=== PATIENT | female | born 1985 | race Caucasian/White ===

== ENCOUNTER → 2021-08-05 | Outpatient (CLI) | payer OTHER ==
--- NOTE | 2021-08-06 08:17 | REP ---
INDICATION: LT FOOT PAIN ? STRESS FX. COMPARISON: None. TECHNIQUE: Sagittal T2 fat suppressed and proton density. Coronal proton density, STIR and fat suppressed proton density. Axial fat suppressed proton density and T1. FINDINGS: All imaged flexor and extensor tendons are intact and of normal appearing low signal throughout. The cortical marrow signal seen throughout the examination is within normal limits. There is no evidence of a joint effusion. There is no evidence of a mass or mass effect. There is a small amount of fluid seen along the medial margin of the 1st metatarsal which is nonspecific. The cartilaginous surfaces are smooth. IMPRESSION: There is a small amount of fluid seen medially as described above. This is nonspecific and could be secondary to muscular strain or an overuse syndrome. Should be correlated clinically. <Electronically signed by Alexander Corona > 08/06/21 0553
== END ==
LOC: M RAD 15:30
PROVIDERS: ATTEND Podiatrist Foot & Ankle Surgery
DX: M79.672 Pain in left foot (principal)